=== PATIENT | male | born 1990 | race Caucasian/White ===

== ENCOUNTER 2020-01-16 09:30 | Inpatient (IN) | payer OTHER ==
--- NOTE | 2020-01-16 10:30 | BHS.RME ---
Substance Use & Tx History - Substance Use History Heroin Substance amount: 7 to 10 bags of heroin Frequency of use: Daily Substance route: Inhalation (ex: sniffing or snorting) Date of Last Use: 01/15/20 Cocaine- Powder Substance amount: 40$ to 60$ Frequency of use: More than 3 times per week Date of Last Use: 01/15/20 Methadone Substance amount: 30 mgs Substance route: Inhalation (ex: sniffing or snorting) Date of Last Use: 01/14/20 Alcohol Substance amount: 1pint of whisky/3 of 16 ozs of beer Frequency of use: Less than 3 times per week Date of Last Use: 01/14/20 - Last Treatment Date of last treatment: never been in detox Physical/Psych/Mental Status - Behavior Eye Contact: Normal - Cooperativeness Cooperativeness: Cooperative - Thinking Thought Processes: Logical Thought content: Future oriented - Physical Health Problems Is patient presently having any pain?: No Does patient presently have any injuries (include location): No Does patient currently have a fever: No COWS - Scale Resting Pulse: 0= [place] 80 or Below Sweatin= Chills/Flushing Restless Observation: 3= Extraneous Movement Pupil Size: 1= Pupils >than Normal Bone or Joint Aches: 2= Severe Diffuse Aches Runny Nose/ Eye Tearin= Runny Nose/Eyes GI Upset > 30mins: 2= Nausea/Diarrhea Tremor Observation: 2= Slight Tremor Visible Yawning Observation: 2= >3x During Session Anxiety or Irritability: 2=Irritable/Anxious Goose Flesh Skin: 0=Smooth Skin COWS Score: 17
--- NOTE | 2020-01-16 11:03 | HP ---
COWS - Scale Resting Pulse: 0= [place] 80 or Below Sweatin= Chills/Flushing Restless Observation: 3= Extraneous Movement Pupil Size: 1= Pupils >than Normal Bone or Joint Aches: 2= Severe Diffuse Aches Runny Nose/ Eye Tearin= Runny Nose/Eyes GI Upset > 30mins: 2= Nausea/Diarrhea Tremor Observation: 2= Slight Tremor Visible Yawning Observation: 2= >3x During Session Anxiety or Irritability: 2=Irritable/Anxious Goose Flesh Skin: 0=Smooth Skin COWS Score: 17 CIWA Score - Admission Criteria OASAS Guidelines: Admission for Medically Managed Detox: Requires at least one of the followin. CIWA greater than 12 2. Seizures within the past 24 hours 3. Delirium tremens within the past 24 hours 4. Hallucinations within the past 24 hours 5. Acute intervention needed for co occurring medical disorder 6. Acute intervention needed for co occurring psychiatric disorder 7. Severe withdrawal that cannot be handled at a lower level of care (continued vomiting, continued diarrhea, abnormal vital signs) requiring intravenous medication and/or fluids 8. Admitting History and Physical - Admission Chief Complaint: i need help to stop using drugs and alcohol abused History of Present Illness: this 29 years old male with heroin dependence,cocaine and alcohol abused,seeking detox, seen in [facility] yesterday never been in detox before nicotine dependence plan for iop History Source: Patient Limitations to Obtaining History: No Limitations - Smoking History Smoking history: Current every day smoker Have you smoked in the past 12 months: Yes Aproximately how many cigarettes per day: 10 - Alcohol/Substance Use Hx Alcohol Use: Yes History of Substance Use: reports: Cocaine, Heroin Date of Last Use: 01/15/20 - Social History Usual Living Arrangement: Yes: Alone Do you think of yourself as: Straight/Heterosexual ADL: Independent Occupation: food delivery History of Recent Travel: No Other Social History: nicotine dependence,living alone,working food delivery Admission ROS BHS - HPI Chief Complaint: i need help to stop using heroin,cocaine and alcohol abused Allergies/Adverse Reactions: Allergies Allergy/AdvReac Type Severity Reaction Status Date / Time No Known Allergies Allergy Verified 01/16/20 11:13 History of Present Illness: this 29 years old male with heroin,dependence,cocaine and alcohol abused,[facility] detox, never been in detox before seen in [place] last 01/15/20 Exam Limitations: No Limitations - Ebola screening Have you traveled outside of the country in the last 21 days: No Have you had contact with anyone from an Ebola affected area: No Have you been sick,other than usual withdrawal symptoms: No Do you have a fever: No - Review of Systems Constitutional: Malaise, Night Sweats, Changes in sleep EENT: reports: Nose Congestion Respiratory: reports: No Symptoms reported Cardiac: reports: No Symptoms Reported GI: reports: Diarrhea, Nausea, Vomiting, Abdominal cramping : reports: No Symptoms Reported Musculoskeletal: reports: Back Pain, Muscle Pain Integumentary: reports: Dryness Neuro: reports: Headache, Tremors Endocrine: reports: No Symptoms Reported Hematology: reports: No Symptoms Reported Psychiatric: reports: No Sypmtoms Reported, Judgement Intact, Mood/Affect Appropiate, Orientated x3 Other Systems: Reviewed and Negative Patient History - Patient Medical History Hx Anemia: No Hx Asthma: No Hx Chronic Obstructive Pulmonary Disease (COPD): No Hx Cancer: No Hx Cardiac Disorders: No Hx Congestive Heart Failure: No Hx Hypertension: No Hx Hypercholesterolemia: No Hx Pacemaker: No HX Cerebrovascular Accident: No Hx Seizures: No Hx Dementia: No Hx Diabetes: No Hx Gastrointestinal Disorders: No Hx Liver Disease: No Hx Genitourinary Disorders: No Hx Sexually Transmitted Disorders: No Hx Renal Disease (ESRD): No Hx Thyroid Disease: No Hx Human Immunodeficiency Virus (HIV): No (06/2019 negative) Hx Hepatitis C: No Hx Depression: No Hx Suicide Attempt: No Hx Bipolar Disorder: No Hx Schizophrenia: No Other Medical History: no suicidal,no homicidal - Patient Surgical History Past Surgical History: No - PPD History Documented Results: Negative w/o proof Implanted On Prior [facility] Admission?: No PPD to be Administered?: Yes - Smoking Cessation Smoking history: Current every day smoker Have you smoked in the past 12 months: Yes Aproximately how many cigarettes per day: 10 Hx Chewing Tobacco Use: No Initiated information on smoking cessation: Yes 'Breaking Loose' booklet given: 01/16/20 - Substance & Tx. History Hx Alcohol Use: Yes Hx Substance Use: Yes Substance Use Type: Alcohol, Cocaine, Heroin Hx Substance Use Treatment: No - Substances abused Heroin Frequency: Daily Amount used: 7 to 10 bags Age of first use: 21 Date of last use: 01/15/20 Cocaine Frequency: 3-6 times per week Amount used: 40$ to 60 $ Age of first use: 29 Date of last use: 01/15/20 Alcohol Frequency: 1-2 times per week Amount used: 1 pint of whisky/3 of 16 ozs of beer Age of first use: 16 Date of last use: 01/14/20 Non-Rx Methadone Substance route: Oral Frequency: 1-3 times last 30 days Amount used: 30 mgs Age of first use: 19 Date of last use: 01/14/20 Admission Physical Exam [facility] Physical General Appearance: Yes: Moderate Distress, Tremorous, Irritable, Sweating, Anxious HEENTM: Yes: Within Normal Limits, Normocephalic, LAMIN, Pharynx Normal Respiratory: Yes: Lungs Clear, Normal Breath Sounds, No Respiratory Distress Neck: Yes: Within Normal Limits, No masses,lesions,Nodules, Supple, Trachea in good position Breast: Yes: Breast Exam Deferred Cardiology: Yes: Within Normal Limits, Regular Rhythm, Regular Rate, S1, S2 Abdominal: Yes: Within Normal Limits, Normal Bowel Sounds, Non Tender, Flat, Soft Genitourinary: Yes: Within Normal Limits Back: Yes: Muscle Spasm Musculoskeletal: Yes: Back pain, Muscle Pain Extremities: Yes: Tremors Neurological: Yes: [employer] II-XII NML intact, Fully Oriented, Alert, Motor Strength 5/5 Integumentary: Yes: Dry Lymphatic: Yes: Within Normal Limits - Diagnostic (1) Opioid dependence with withdrawal Status: Acute (2) Alcohol use disorder Status: Acute (3) Cocaine abuse Status: Acute (4) Nicotine dependence Status: Acute Qualifiers: Nicotine product type: cigarettes Substance use status: in withdrawal Qualified Code(s): F17.213 - Nicotine dependence, cigarettes, with withdrawal Cleared for Admission [facility] - Detox or Rehab [facility] Level of Care: Medically Managed Detox Regimen/Protocol: Methadone Inpatient Rehab Admission - Rehab Decision to Admit Inpatient rehab admission?: No
[2020-01-16 11:35] VITALS: BMI 18.6
[2020-01-16] MEDS ORDERED: cloNIDine HCL 0.1 MG TABLET PO PRN (11:44)
[2020-01-16] MEDS ORDERED: ACETAMINOPHEN 325 MG TABLET (FP) PO PRN ×2 (11:44)
[2020-01-16] MEDS ORDERED: NICOTINE POLACRILEX 2 MG GUM BUC PRN (11:44)
[2020-01-16] MEDS ORDERED: MAG HYDROX/AL HYDROX/SIMETH 30 ML UNIT-DOSE CUP PO PRN (11:44)
[2020-01-16] MEDS ORDERED: BISMUTH SUBSALICYLATE 524 MG/30 ML UD PO PRN (11:44)
[2020-01-16] MEDS ORDERED: METHOCARBAMOL 500 MG TABLET PO PRN (11:44)
[2020-01-16] MEDS ORDERED: ONDANSETRON *ODT* 4 MG TABLET SL ONE (11:44)
[2020-01-16] MEDS ORDERED: MAGNESIUM CITRATE 300 ML BOTTLE PO PRN (11:44)
[2020-01-16] MEDS ORDERED: MENTHOL/PHENOL 1 EACH UD MM PRN (11:44)
[2020-01-16] MEDS ORDERED: MAGNESIUM HYDROX 2400MG/30ML ORAL SUSPENSION 30 ML CUP PO PRN (11:44)
[2020-01-16] MEDS ORDERED: METHADONE HCL 10 MG TABLET (FOR DETOX USE ONLY) PO ONE (11:44)
[2020-01-16] MEDS ORDERED: IBUPROFEN 400 MG TABLET (FP) PO PRN (11:44)
[2020-01-16] MEDS ORDERED: diazePAM 5 MG TABLET PO PRN (11:49)
[2020-01-16] MEDS: NICOTINE 21 MG/24 HOURS TOPICAL PATCH TD SCH (13:04)
[2020-01-16] MEDS: hydrOXYzine PAMOATE 25 MG CAPSULE (FP) PO SCH ×3 (13:05→21:58)
[2020-01-16] MEDS ORDERED: MELATONIN 5 MG TABLETS PO SCH (22:00)
[2020-01-16] MEDS ORDERED: THIAMINE HCL 100 MG TABLET (FP) PO SCH (22:00)
[2020-01-17] MEDS: hydrOXYzine PAMOATE 25 MG CAPSULE (FP) PO SCH ×2 (07:15→10:22)
[2020-01-17] MEDS ORDERED: METHADONE HCL 5 MG TABLET (FOR DETOX USE ONLY) ONE (09:00)
[2020-01-17] MEDS ORDERED: METHADONE HCL 10 MG TABLET (FOR DETOX USE ONLY) ONE (09:00)
[2020-01-17 09:21] VITALS: BP 121/75; PULSE 62; TEMP 98
--- NOTE | 2020-01-17 09:29 | EKG ---
Test Reason : Blood Pressure : / mmHG Vent. Rate : 063 BPM Atrial Rate : 063 BPM P-R Int : 120 ms QRS Dur : 112 ms QT Int : 400 ms P-R-T Axes : 049 077 055 degrees QTc Int : 409 ms NORMAL SINUS RHYTHM NORMAL ECG NO PREVIOUS ECGS AVAILABLE Confirmed by Suzanna Juárez ([id number]) on 01/17/2020 9:29:27 AM Referred By: Confirmed By:Suzanna Juárez
[2020-01-17] MEDS ORDERED: PRENATAL VITAMINS W/ FOLIC ACID TABLET (FP) PO SCH (10:00)
[2020-01-17] MEDS ORDERED: METHADONE (DETOX) 20 MG, METHADONE (DETOX) 5 MG PO ONE (10:00)
[2020-01-17 10:13] LABS: HEMATOCRIT 42.2 % (35.4-49); MCH 29.6 pg (25.7-33.7); MCHC 33.2 g/dl (32.0-35.9); MEAN PLT VOLUME 8.3 fl (7.5-11.1); PLATELET COUNT 264 K/MM3 (134-434); RBC 4.74 M/mm3 (4.00-5.60); RDW 12.8 % (11.9-15.9)
[2020-01-17] MEDS: NICOTINE 21 MG/24 HOURS TOPICAL PATCH TD SCH (10:20)
[2020-01-17 10:32] LABS: ALBUMIN 3.6 g/dl (3.4-5.0); CALCIUM 9.3 mg/dL (8.5-10.1); CREATININE 0.8 mg/dL (0.55-1.3); POTASSIUM 3.8 mmol/L (3.5-5.1); TOT PROT 6.5 g/dl (6.4-8.2)
--- NOTE | 2020-01-17 12:05 | PN ---
BHS COWS - Scale Resting Pulse: 0= [place] 80 or Below Sweatin= Chills/Flushing Restless Observation: 0= Sits Still Pupil Size: 1= Pupils >than Normal Bone or Joint Aches: 1= Mild Discomfort Runny Nose/ Eye Tearin= None GI Upset > 30mins: 2= Nausea/Diarrhea Tremor Observation of Outstretched Hands: 2= Slight Tremor Visible Yawning Observation: 0= None Anxiety or Irritability: 2=Irritable/Anxious Goose Flesh Skin: 3=Piloerection COWS Score: 12 BHS Progress Note (SOAP) Subjective: 29 years old male admitted on 01/16/20 for opiate withdrawal sx management treating with methadone detox regiment ate small amount of breakfast 40% ensure 120 ml po tid with meals general body aches restlessness Objective: 01/17/20 12:04 Vital Signs - 24 hr 01/16/20 01/16/20 01/16/20 12:36 16:48 20:44 Temperature 97.3 F L 97.7 F 97.5 F L Pulse Rate 69 61 61 Respiratory 18 16 18 Rate Blood Pressure 131/89 113/74 133/93 O2 Sat by Pulse 100 100 Oximetry (%) 01/17/20 01/17/20 06:47 08:49 Temperature 97.8 F 98.0 F Pulse Rate 64 62 Respiratory 18 16 Rate Blood Pressure 114/69 121/75 O2 Sat by Pulse 96 Oximetry (%) Laboratory Tests 01/17/20 01/17/20 08:15 08:15 WBC 9.0 RBC 4.74 Hgb 14.0 Hct 42.2 MCV 89.0 MCH 29.6 MCHC 33.2 RDW 12.8 Plt Count 264 MPV 8.3 Sodium 139 Potassium 3.8 Chloride 106 Carbon Dioxide 29 Anion Gap 5 L BUN 14.0 Creatinine 0.8 Est GFR (CKD-EPI)AfAm 141.89 Est GFR (CKD-EPI)NonAf 122.43 Random Glucose 85 Calcium 9.3 Total Bilirubin 1.0 AST 17 ALT 27 Alkaline Phosphatase 94 Total Protein 6.5 Albumin 3.6 01/17/20 12:05 covid pending Assessment: 01/17/20 12:05 opiate withdrawal Plan: methadone regiment
--- NOTE | 2020-01-17 14:09 | DS ---
[facility] Detox Discharge Summary Admission Date: 01/16/20 Discharge Date: 01/17/20 - History Present History: Opioid Dependence Additional Comments: 29 years old male admitted on 01/16/20 for opiate withdrawal sx management treating with methadone detox regiment mr jacobsen insists to leave the detox today that he has an appointment with the [facility] social service interview reports feeling better now after received methadone 25mg around 10am received ensure 1 can alert oriented x 3 speech clearly coherently ambulating with steady gaits cardiac s1s2 regular rate rhythm respiratory clear lung sounds bilaterally on auscultation extremities full range of motion Pertinent Past History: time for discharge 46 minutes treatment team met with the patient to discuss the benefits of methadone regiment completion encourage to consider medication assisted treatment program and supervisor opening and picking narcan from pharmacy - Physical Exam Results Vital Signs: Vital Signs Temperature 98.0 F 01/17/20 08:49 Pulse Rate 62 01/17/20 08:49 Respiratory Rate 16 01/17/20 08:49 Blood Pressure 121/75 01/17/20 08:49 O2 Sat by Pulse Oximetry (%) 96 01/17/20 06:47 Pertinent Admission Physical Exam Findings: opiate with drawal - Treatment Hospital Course: Detox Protocol Followed, Responded well Patient has Accepted a Rehab Referral to: community support NA groups and meetings - Medication Discharge Medications: Ambulatory Orders Naloxone HCl [Narcan] 4 mg NS ASDIR PRN #1 spray 01/17/20 - Diagnosis (1) Nicotine dependence Status: Acute Qualifiers: Nicotine product type: cigarettes Substance use status: in withdrawal Qualified Code(s): F17.213 - Nicotine dependence, cigarettes, with withdrawal (2) Opioid dependence with withdrawal Status: Acute - AMA Did Patient Leave Against Medical Advice: Yes COWS (PN) - Opiate Withdrawal Resting Pulse: 0= [place] 80 or Below Sweatin= Chills/Flushing Restless Observation: 0= Sits Still Pupil Size: 1= Pupils >than Normal Bone or Joint Aches: 1= Mild Discomfort Runny Nose/ Eye Tearin= Nasal Congestion GI Upset > 30mins: 1= Stomach Cramp Tremor Observation of Outstretched Hands: 1= Tremor [place], Not Seen Yawning Observation: 1= 1-2x During Session Anxiety or Irritability: 1=Feels Anxious/Irritable Goose Flesh Skin: 0=Smooth Skin COWS Score: 8
[2020-01-18] MEDS ORDERED: METHADONE HCL 10 MG TABLET (FOR DETOX USE ONLY) PO ONE (10:00)
[2020-01-19] MEDS ORDERED: METHADONE (DETOX) 10 MG, METHADONE (DETOX) 5 MG PO ONE (10:00)
[2020-01-20] MEDS ORDERED: METHADONE HCL 10 MG TABLET (FOR DETOX USE ONLY) PO ONE (10:00)
[2020-01-21] MEDS ORDERED: METHADONE HCL 5 MG TABLET (FOR DETOX USE ONLY) PO ONE (06:00)
== END 2020-01-17 12:51 | disposition left against medical advice (07) | DRG 770 ==
LOC: YASAS 09:30 → Y3N 12:09
PROVIDERS: ADMIT Allergy & Immunology; ATTEND Allergy & Immunology
PROC: HZ2ZZZZ Detoxification Services for Substance Abuse Treatment (ICD-10-PCS; principal; 2020-01-16)
DX: F11.23 Opioid dependence with withdrawal (principal); F10.10 Alcohol abuse, uncomplicated; F14.10 Cocaine abuse, uncomplicated; F17.210 Nicotine dependence, cigarettes, uncomplicated
CPT/HCPCS: 36415; 80053; 85027; 86780; 93005; 93010; U0003